=== PATIENT | male | born 1995 | race American Indian/Alaskan Native ===

== ENCOUNTER 2018-05-29 01:03 | Emergency (ER) | payer SELFPAY ==
[2018-05-29] MEDS ORDERED: PERCOCET 5/325 PO ONE (05:27)
[2018-05-29] MEDS ORDERED: TRIMOX PO ONE (05:28)
--- NOTE | 2018-05-29 05:33 | Emergency Department Report ---
ED ENT HPI - General Chief complaint: Dental/Oral Stated complaint: MOUTH PAIN Time Seen by Provider: 05/29/18 05:27 Source: patient Mode of arrival: Ambulatory Limitations: No Limitations - History of Present Illness Initial comments: 22-year-old male comes in complaining of pain and swelling to his left lower jaw onset last night. Patient denies any fever or chills. He is aware that he has a bad tooth in his mouth. He reports no known drug allergies currently takes no medications on a daily basis and has no past medical history. MD complaint: tooth pain -: days(s) (1), Last night Location: tooth # (21) Severity: severe Severity scale (0 -10): 10 Quality: stabbing, aching, sharp Consistency: constant Improves with: none Worsens with: eating, movement Associated Symptoms: gum swelling, toothache. denies: fever, cough, sore throat , tinnitus - Related Data Previous Rx's Medication Instructions Recorded Last Taken Type Amoxicillin [Trimox CAP] 500 mg PO BID #20 capsule 05/29/18 Unknown Rx Ibuprofen [Motrin 800 MG tab] 800 mg PO Q8HR PRN #30 tablet 05/29/18 Unknown Rx traMADol [Ultram 50 MG tab] 50 mg PO Q6HR PRN #16 tablet 05/29/18 Unknown Rx Allergies Allergy/AdvReac Type Severity Reaction Status Date / Time No Known Allergies Allergy Unverified 05/29/18 01:09 ED Dental HPI - General Chief complaint: Dental/Oral Stated complaint: MOUTH PAIN Time Seen by Provider: 05/29/18 05:27 Source: patient Mode of arrival: Ambulatory Limitations: No Limitations - Related Data Previous Rx's Medication Instructions Recorded Last Taken Type Amoxicillin [Trimox CAP] 500 mg PO BID #20 capsule 05/29/18 Unknown Rx Ibuprofen [Motrin 800 MG tab] 800 mg PO Q8HR PRN #30 tablet 05/29/18 Unknown Rx traMADol [Ultram 50 MG tab] 50 mg PO Q6HR PRN #16 tablet 05/29/18 Unknown Rx Allergies Allergy/AdvReac Type Severity Reaction Status Date / Time No Known Allergies Allergy Unverified 05/29/18 01:09 ED Review of Systems ROS: Stated complaint: MOUTH PAIN Other details as noted in HPI ENT: dental pain ED Past Medical Hx - Past Medical History Previous Medical History?: No - Surgical History Past Surgical History?: No - Social History Smoking Status: Current Every Day Smoker Substance Use Type: Marijuana - Medications Home Medications: Home Medications Medication Instructions Recorded Confirmed Last Taken Type Amoxicillin [Trimox CAP] 500 mg PO BID #20 capsule 05/29/18 Unknown Rx Ibuprofen [Motrin 800 MG tab] 800 mg PO Q8HR PRN #30 tablet 05/29/18 Unknown Rx traMADol [Ultram 50 MG tab] 50 mg PO Q6HR PRN #16 tablet 05/29/18 Unknown Rx ED Physical Exam - General Limitations: No Limitations - Expanded ENT Exam Expanded Teeth exam: Present: dental tenderness # (21), gingival enlargement, other ( left lower jaw swelling and tenderness) - Neck Neck exam: Present: normal inspection ED Course Vital Signs 05/29/18 05/29/18 01:01 01:10 Temperature 98.5 F 98.5 F Pulse Rate 102 H 102 H Respiratory 18 18 Rate Blood Pressure 128/72 128/72 O2 Sat by Pulse 99 99 Oximetry ED Medical Decision Making - Medical Decision Making Patient has been evaluated by this provider fast track. Percocet and amoxicillin given for pain management and starting of antibiotics. Will discharge patient on ibuprofen and tramadol and amoxicillin. Referral to dentistry. Critical care attestation.: If time is entered above; I have spent that time in minutes in the direct care of this critically ill patient, excluding procedure time. ED Disposition Clinical Impression: Abscess, dental Disposition: DC-01 TO HOME OR SELFCARE Is pt being admited?: No Does the pt Need Aspirin: No Condition: Stable Instructions: Dental Abscess (ED) Additional Instructions: Complete antibiotics and take pain medication as needed. Follow-up with dental. Prescriptions: Amoxicillin [Trimox CAP] 500 mg PO BID #20 capsule Ibuprofen [Motrin 800 MG tab] 800 mg PO Q8HR PRN #30 tablet PRN Reason: Pain , Severe (7-10) traMADol [Ultram 50 MG tab] 50 mg PO Q6HR PRN #16 tablet PRN Reason: Pain Referrals: PRIMARY CARE, [Primary Care Provider] - 3-5 Days [facility] [Provider Group] - 3-5 Days [facility] [Outside] - 3-5 Days [facility] [Outside] - 3-5 Days Forms: Work/School Release Form(ED)
[2018-05-29 06:10] VITALS: BP 126/72
== END 2018-05-29 06:10 | disposition home or self-care (01) ==
LOC: ED 01:03
DX: K04.7 Periapical abscess without sinus (principal); F17.200 Nicotine dependence, unspecified, uncomplicated; F12.10 Cannabis abuse, uncomplicated
CPT/HCPCS: 99282

== ENCOUNTER 2019-10-06 18:46 | Emergency (ER) | payer SELFPAY ==
--- NOTE | 2019-10-06 20:49 | Emergency Department Report ---
Blank Doc - Documentation Documentation: 24-year-old male that presents with acute neck pain. Denies any injuries. This initial assessment/diagnostic orders/clinical plan/treatment(s) is/are subject to change based on patient's health status, clinical progression and re- assessment by fellow clinical providers in the ED. Further treatment and workup at subsequent clinical providers discretion. Patient/guardians urged not to elope from the ED as their condition may be serious if not clinically assessed and managed. Initial orders include: 1- Patient sent to [facility] for further evaluation and treatment 2- xrays
[2019-10-06 20:52] VITALS: BP 128/62
[2019-10-06] MEDS ORDERED: dexAMETHasone 20 MG/5 ML VIAL IM ONE (21:46)
[2019-10-06] MEDS ORDERED: CYCLOBENZAPRINE 10 MG TAB PO ONE (21:46)
[2019-10-06] MEDS ORDERED: HYDROcodone/ACETAMINOPHEN 5-325 MG TAB PO ONE (21:46)
[2019-10-06] MEDS ORDERED: ONDANSETRON 4 MG ODT TAB PO ONE (21:46)
[2019-10-06] MEDS ORDERED: IBUPROFEN 600 MG TAB PO ONE (21:47)
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
== END 2019-10-06 23:00 | disposition home or self-care (01) ==
LOC: ED 18:46
DX: S29.012A Strain of muscle and tendon of back wall of thorax, initial encounter (principal); M62.830 Muscle spasm of back; F17.200 Nicotine dependence, unspecified, uncomplicated; Z79.899 Other long term (current) drug therapy; X58.XXXA Exposure to other specified factors, initial encounter; Y93.89 Activity, other specified; Y92.89 Other specified places as the place of occurrence of the external cause; Y99.8 Other external cause status
CPT/HCPCS: 72040; 96372; 99283; J1100; Q0162